=== PATIENT | female | born 1970 | race African-American/Black ===

== ENCOUNTER 2019-05-13 21:24 | Emergency (ER) | payer OTHER ==
[~2019-05-13] VITALS: Ht 157.5 cm; Wt 85.5 kg
[~2019-05-13 21:24] MED LIST: DOCU-281 PO; DSS100 PO; FERR-89 PO; GABA-531 PO; HYDR-4061 PO; NORE1TAB4 PO; OMEP20 PO; RISP1 PO; TRAM50TA4 PO
[2019-05-13] MEDS ORDERED: LURA40 PO (21:47)
[2019-05-13] MEDS ORDERED: QUET25TA PO (21:47)
[2019-05-13 22:35] VITALS: BP 153/94
== END 2019-05-13 23:16 | disposition home or self-care (01) ==
LOC: EMS 21:25
DX: S61.307A Unspecified open wound of left little finger with damage to nail, initial encounter (principal); L03.012 Cellulitis of left finger; F17.210 Nicotine dependence, cigarettes, uncomplicated; F20.9 Schizophrenia, unspecified; Z79.899 Other long term (current) drug therapy; W51.XXXA Accidental striking against or bumped into by another person, initial encounter; Y93.89 Activity, other specified; Y92.89 Other specified places as the place of occurrence of the external cause; Y99.8 Other external cause status

== ENCOUNTER 2019-09-19 13:30 | Emergency (ER) | payer OTHER ==
[~2019-09-19] VITALS: Ht 157.5 cm; Wt 87.3 kg
[~2019-09-19 13:30] MED LIST changes: -DOCU-281 PO; -FERR-89 PO; -HYDR-4061 PO; +LURA40 PO; -NORE1TAB4 PO; -OMEP20 PO; +QUET25TA PO; -TRAM50TA4 PO
[2019-09-19] MEDS: LIDOCAINE 5% TRANSDERMAL PATCH TD ONE ×2 (15:50→15:55)
[2019-09-19] MEDS: IBUPROFEN 400 MG TABLET PO ONE ×2 (15:50→15:55)
[2019-09-19 15:54] VITALS: BP 137/89
== END 2019-09-19 16:02 | disposition home or self-care (01) ==
LOC: EMS 13:32
DX: S39.012A Strain of muscle, fascia and tendon of lower back, initial encounter (principal); S29.012A Strain of muscle and tendon of back wall of thorax, initial encounter; G89.29 Other chronic pain; F20.9 Schizophrenia, unspecified; F17.210 Nicotine dependence, cigarettes, uncomplicated; Z79.899 Other long term (current) drug therapy; V49.9XXA Car occupant (driver) (passenger) injured in unspecified traffic accident, initial encounter; Y93.89 Activity, other specified; Y92.488 Other paved roadways as the place of occurrence of the external cause; Y99.8 Other external cause status
CPT/HCPCS: 99406

== ENCOUNTER 2021-04-09 07:22 | Emergency (ER) | payer OTHER ==
[~2021-04-09] VITALS: Ht 157.5 cm; Wt 79.5 kg
[~2021-04-09 07:22] MED LIST changes: +GABA-1181 PO; -GABA-531 PO; -LURA40 PO; +LURA40TA2 PO; -RISP1 PO; +RISP1TAB48 PO
[2021-04-09] MEDS ORDERED: CYCL10 PO (07:31)
[2021-04-09] MEDS ORDERED: HYDR25TA2 PO (07:31)
[2021-04-09] MEDS ORDERED: VERA240SR PO (07:31)
[2021-04-09] MEDS ORDERED: LORA10TA7 PO (07:31)
[2021-04-09] MEDS ORDERED: BUPIVACAINE HCL/PF 0.25% 10 ML VIAL SQ ONE (07:45)
[2021-04-09] MEDS ORDERED: HYDROCODONE/ACETAMINOPHEN 5-325 MG TABLET PO ONE (07:45)
[2021-04-09] MEDS ORDERED: POVIDONE-IODINE 10% 120 ML SOLUTION TP ONE (07:45)
[2021-04-09 07:46] VITALS: BP 127/79
== END 2021-04-09 08:17 | disposition home or self-care (01) ==
LOC: EMS 07:26
DX: N61.1 Abscess of the breast and nipple (principal); F20.9 Schizophrenia, unspecified; I10 Essential (primary) hypertension; F17.210 Nicotine dependence, cigarettes, uncomplicated
CPT/HCPCS: 10060; 99283; J3490

== ENCOUNTER 2022-09-22 09:47 | Emergency (ER) | payer OTHER ==
[~2022-09-22] VITALS: Ht 170.2 cm; Wt 79.5 kg
[~2022-09-22 09:47] MED LIST changes: +CYCL-448 PO; -GABA-1181 PO; +HYDR25TA2 PO; +LORA10TA7 PO; -LURA40TA2 PO; -QUET25TA PO; -RISP1TAB48 PO; +VERA240T96 PO
[2022-09-22] MEDS ORDERED: OXYC10TA48 PO (09:58)
[2022-09-22] MEDS ORDERED: HYDR25TA2 PO (09:58)
[2022-09-22] MEDS ORDERED: GABA-1201 PO (09:58)
[2022-09-22] MEDS ORDERED: ONDANSETRON HCL 4 MG/2 ML VIAL IVP ONE (10:30)
[2022-09-22] MEDS ORDERED: SODIUM CHLORIDE 0.9% 1,000 ML IV ONE (10:30)
[2022-09-22 10:40] LABS: BASOPHILS % (AUTO) 0.9 % (0.0-2.0); HEMATOCRIT 38.5 % (36-46); HEMOGLOBIN 12.8 g/dL (12.0-16.0); LYMPHOCYTES % (AUTO) 42.7 % (22.0-44.0); MEAN CORPUSCULAR HGB CONC 33.2 G/dL (31.0-37.0); MEAN CORPUSCULAR VOLUME 87 fL (80-100); MONOCYTES # (AUTO) 0.4 K/uL (0.1-1.0); MONOCYTES % (AUTO) 8.5 % (2.0-9.0); NEUTROPHILS # (AUTO) 2.2 K/uL (1.8-7.7); NEUTROPHILS % (AUTO) 46.9 % (40.0-70.0); PLATELET COUNT (AUTO) 276 K/uL (150-450); RED BLOOD CELL COUNT(AUTO) 4.41 MIL/uL (4.00-5.20); RED CELL DISTRIBUTION WIDTH 15.2 % (11.5-14.5)
[2022-09-22 10:42] LABS: ANION GAP 3 mmol/L (8-16); CALCIUM, TOTAL 9.5 mg/dL (8.8-10.5); CARBON DIOXIDE 31 mmol/L (22-29); CHLORIDE 102 mmol/L (98-107); CREATININE 0.98 mg/dL (0.60-1.30); GLUCOSE,RANDOM 107 mg/dL (70-110); SODIUM SERUM 136 mmol/L (136-145); UREA NITROGEN, BLOOD 9 mg/dL (7-18)
[2022-09-22 10:44] LABS: GLOMERULAR FILTR. RATE CALC > 60 mL/min (>60)
[2022-09-22 10:47] LABS: ALANINE AMINOTRANSFERASE 10 U/L (12-78); ALBUMIN 3.5 g/dL (3.4-5.0); ALKALINE PHOSPHATASE 70 U/L (46-116); ASPARTATE AMINOTRANSFERASE 17 U/L (15-37); BILIRUBIN,TOTAL 0.3 mg/dL (0.1-1.0); LIPASE 72 U/L (73-393); TOTAL PROTEIN, SERUM 7.4 g/dL (6.4-8.2)
[2022-09-22 10:50] LABS: COVID AG,FIA SOURCE NASAL SWAB
[2022-09-22 11:14] LABS: APPEARANCE,URINE TURBID (CLEAR); BILIRUBIN,URINE NEGATIVE (NEGATIVE); GLUCOSE, URINE (UA) NEGATIVE (NEGATIVE); KETONES,URINE NEGATIVE (NEGATIVE); LEUKOCYTE ESTERASE ,URINE LARGE (NEGATIVE); NITRATE,URINE POSITIVE (NEGATIVE); OCCULT BLOOD,URINE TRACE (NEGATIVE); PROTEIN,URINE TRACE mg/dL (NEGATIVE); SPECIFIC GRAVITIY, URINE 1.022 (1.003-1.030); UROBILINOGEN,URINE <=1.0 mg/dL (<=1.0)
[2022-09-22] MEDS ORDERED: KETOROLAC TROMETHAMINE 30 MG/ML VIAL IVP ONE (11:15)
[2022-09-22 11:31] LABS: BACTERIA,URINE Moderate /HPF (None Seen); RBC,URINE 0-2 /HPF (0-2); SQUAMOUS EPITHELIAL CELL,UR Few /LPF (None Seen)
[2022-09-22 11:32] LABS: AMORPHOUS SEDIMENT,UR Moderate /LPF (None Seen)
[2022-09-22 12:00] LABS: INFLUENZA TYPE A NEGATIVE FOR TYPE A (NEGATIVE); INFLUENZA TYPE B NEGATIVE FOR TYPE B (NEGATIVE)
[2022-09-22 12:33] VITALS: BP 142/99
[2022-09-22] MEDS ORDERED: NITR-75 PO ×2 (12:46→13:07)
[2022-09-22] MEDS ORDERED: METR500 PO ×2 (12:46→13:07)
[2022-09-22] MEDS ORDERED: ONDA-104 PO ×2 (12:46→13:07)
== END 2022-09-22 12:57 | disposition home or self-care (01) ==
LOC: EMS 09:51
DX: N39.0 Urinary tract infection, site not specified (principal); A59.9 Trichomoniasis, unspecified; R11.2 Nausea with vomiting, unspecified; I10 Essential (primary) hypertension; F20.9 Schizophrenia, unspecified; F17.210 Nicotine dependence, cigarettes, uncomplicated; Z20.822 Contact with and (suspected) exposure to COVID-19
CPT/HCPCS: 99284; 96374; 96361; 96375; 87426; 80053; 81001; 83690; 84484; 85025; 87804; 36415; 87086; 93005; J1885; J2405; J7030

== ENCOUNTER → 2023-11-18 | Emergency (ER) | payer OTHER ==
[~2023-11-18] VITALS: Ht 157.5 cm; Wt 87.3 kg
[~2023-11-18] MED LIST changes: -CYCL-448 PO; +GABA-1201 PO; +METR500 PO; +NITR-75 PO; +ONDA-104 PO; +OXYC10TA48 PO
[2023-11-18 11:00] VITALS: BP 154/95; PULSE 91; RESP 16; TEMP 98.3
== END | disposition still patient (30) ==
LOC: EMS 11:14
DX: R51.9 Headache, unspecified (principal); Z53.21 Procedure and treatment not carried out due to patient leaving prior to being seen by health care provider
CPT/HCPCS: 99281; Z7502